=== PATIENT | male | born 1985 | race Caucasian/White ===

== ENCOUNTER 2019-07-06 17:48 | Emergency (ER) | payer SELFPAY ==
[~2019-07-06] VITALS: Ht 165.1 cm; Wt 70.0 kg
[2019-07-06 17:54] VITALS: BP 110/50
== END 2019-07-06 20:27 | disposition left against medical advice (07) ==
LOC: ER 17:48
DX: R06.02 Shortness of breath (principal); Z53.21 Procedure and treatment not carried out due to patient leaving prior to being seen by health care provider